=== PATIENT | female | born 1945 | race Caucasian/White ===

== ENCOUNTER 2019-06-14 17:49 | Emergency (ER) | payer MEDICARE, OTHER, SELFPAY ==
[2019-06-14 18:07] VITALS: BP 173/86; PULSE 85; RESP 20; TEMP 36.5; O2SAT 99; BMI 24.0
--- NOTE | 2019-06-14 18:32 | ECG_ITS ---
Measurements Intervals [place] Rate: 80 P: 61 [place]: 162 QRS: 26 QRSD: 94 T: 26 QT: 373 QTc: 431 SINUS RHYTHM POSSIBLE LEFT ATRIAL ENLARGEMENT [-0.1mV P WAVE IN V1/V2] NONSPECIFIC ST & T-WAVE ABNORMALITY INTERPRETATION BASED ON A DEFAULT AGE OF 40 YEARS No previous ECG available for comparison Electronically Signed On 06-15-2019 14:11:38 LITIGATION SERVICES MANAGER by Prem Patel M.D. [id number]
--- NOTE | 2019-06-14 18:40 | ED_ITS ---
Entered by Isabel Pearce, acting as scribe for Adwoa Jurado Sb Jun 14, 2019 17:49 HPI - Chest Pain General: Chief Complaint: Chest Pain Stated Complaint: chest pressure Time Seen by Provider: 06/14/19 18:39 Source: patient and family Mode of arrival: ambulatory Limitations: no limitations History of Present Illness: HPI narrative: 73 yo female presents with chest tightness. pt states the pain comes and go. pt states in ED the pain is gone. pt states exertion or any other symptoms makes this worse and nothing better. pt denies any other symptoms at this time. She denies any radiation of her pain although at times she will have associated left arm heaviness. She denies shortness of breath, nausea vomiting, diaphoresis, migration of her pain, ripping tearing sensation or otherwise. MD complaint: chest pain Onset (ago): day(s) (last night) Timing of current episode: constant and still present Prior episodes: No Onset: during exertion Pain location: substernal Pain radiation: left arm Severity: mild Quality: tightness Relieving factors: nothing Exacerbating factors: exertion Associated symptoms: Reports no associated symptoms; Deny abdominal pain, diaphoresis, dyspnea, fever(s), nausea, palpitations, syncope or vomiting Treatment prior to arrival: aspirin Review of Systems General: Reports: 10 or more systems reviewed and unremarkable except in HPI and below Const: Denies: fever, chills, body aches, fatigue, malaise or diaphoresis Eyes: Denies: change in vision or blurry vision ENMT: Denies: throat pain, painful swallowing, hoarseness, ear pain, ear discharge, Change in hearing or nasal discharge Card: Reports: chest pain; Denies: palpitations, irregular heart rhythm, syncope, pre-syncope, shortness of breath on exertion or shortness of breath when lying down Resp: Denies: shortness of breath, productive cough, non-productive cough, wheezing, coughing up blood or chest congestion GI: Denies: abdominal pain, nausea, vomiting, vomiting blood, coffee grounds in vomit, diarrhea, constipation, cramping, blood in stool or black tarry stool : Denies: flank pain, painful urination, urinary frequency, urinary urgency, decreased urine ouput, urinary incontinence or blood in urine Musc: Denies: neck pain, back pain, extremity pain, extremity swelling, joint pain, joint swelling, joint warmth or joint stiffness Skin/Breast: Denies: rash, skin tenderness or yellow skin Neuro: Denies: headache, numbness in extremities, weakness in extremities, changes in sensation, lack of coordination, difficulty walking, dizziness, vertigo or confusion Endo: Denies: excessive thirst, tired all the time, cold intolerance, excessive sweating, flushing or hot flashes Ricardo/Lymph: Denies: easy bruising, easy bleeding, petechiae or enlarged lymph nodes All/Imm: Denies: hives, throat swelling, tongue swelling, facial swelling or acute wheezing PFSH ED 2 PFSH: Medical History HTN (hypertension) Social History Smoking and tobacco status: never smoked Physical Exam Const: COMMON NORMALS: no apparent distress, oriented x3, no limitations, healthy appearing and well nourished EXAM LIMITATIONS: no altered mental status GENERAL APPEARANCE: cooperative, well kempt and well developed ORIENTATION/CONSCIOUSNESS: Yes awake HENMT: COMMON NORMALS: normocephalic, head/scalp atraumatic, hearing grossly normal bilaterally, external ears normal, EAC's normal, external nose normal and moist oral mucous membranes HEAD & SCALP: normal to inspection, normocephalic and atraumatic FACE & SINUS: normal facial exam and face symmetric NOSE: external nose normal and nares normal EXTERNAL EAR: Yes external ears normal EXTERNAL AUDITORY CANAL: EAC's normal MOUTH: oral and palatal mucosa normal and tongue normal Eye: COMMON NORMALS: PERRL, EOMs intact bilaterally, conjunctivae normal and no scleral icterus GENERAL EYE: normal appearance of both eyes and normal light reflex CONJUNCTIVA: Yes conjunctivae normal SCLERA: sclerae normal CORNEA: Yes corneas normal PUPIL: Yes PERRL DIRECT OPHTHALMOSCOPY: Yes normal light reflex Neck/C-Spine: COMMON NORMALS: full ROM, no lymphadenopathy, supple, no meningeal signs and no JVD GENERAL: Yes normal visual inspection and Yes trachea midline CERVICAL SPINE: Yes cervical ROM normal Chest: COMMONS NORMALS: inspection of chest normal and palpation of chest normal Resp: COMMON NORMALS: normal respiratory effort, no retractions, no use of accessory muscles and clear to auscultation bilaterally EFFORT & INSPECTION: Yes able to speak in complete sentences AUSCULTATION: clear to auscultation bilaterally Cardio: COMMON NORMALS: no JVD, regular rate, regular rhythm, S1 normal heart sound, S2 normal heart sound, no gallops, no clicks, no murmurs and no rub JUGULAR VENOUS DISTENTION: no JVD RATE: regular rate RHYTHM: regular rhythm HEART SOUNDS: S1 normal and S2 normal GI: COMMON NORMALS: soft to palpation, non-tender, no hepatosplenomegaly and no masses INSPECTION: Yes normal to inspection PALPATION: Yes soft and Yes no hepatosplenomegaly : COMMON NORMALS: Yes no CVA tenderness BLADDER/KIDNEY EXAM: Yes no CVA tenderness Back/Pelvis: COMMON NORMALS: no CVA tenderness, thoracic and lumbar spine normal to inspection, no thoracic nor lumbar tenderness and thoraco-lumbar ROM normal Extremity: COMMON NORMALS: normal to inspection, full ROM, normal capillary r efill, no joint enlargement, no clubbing, cyanosis or edema and no calf tenderness Neuro: COMMON NORMALS: oriented x3, CN's II-XII intact bilaterally, moves all extremities, no focal motor deficits and no sensory deficits noted MENINGEAL SIGNS: Yes no meningeal signs Psych: COMMON NORMALS: mental status grossly normal, thought process normal, cooperative, affect normal, speech normal and activity/motor behavior normal APPEARANCE: Yes well kempt SPEECH: Yes normal speech THOUGHT PROCESS: normal thought process Skin: COMMON NORMALS: no rashes or lesions noted, skin turgor normal, no jaundice, no petechiae and no mottling GENERAL SKIN EXAM: no rashes or lesions noted and turgor normal Course Vital Signs: Vital signs: Vital Signs Temperature 97.7 F 06/14/19 18:07 Pulse Rate 90 06/14/19 22:38 Respiratory Rate 18 06/14/19 22:38 Blood Pressure 146/84 06/14/19 22:38 Pulse Oximetry 98 06/14/19 22:38 MDM - Chest Pain MDM Narrative: Medical decision making narrative: Ms. Richardson is a nice 73-year-old female who comes in complaining of chest her heart score is a 5 but despite my discussing her risks and the need for her to stay in the hospital for a stress test she is refusing. The patient understands her risk but feels as though she has too many responsibilities at home. She declines to stay. She understands the risks of leaving including ultimately or severe permanent disability.despite this she wants to leave. She does understand she is welcome to return at any time. She plans at this time on following up with her nurse practitioner to set up an outpatient stress test for soon as possible. The patient has been warned but she is also been welcomed to return. Lab Data: Attestation: I reviewed the patient's lab results. Labs: Lab Results 06/14/19 06/14/19 06/14/19 Range/Units 19:01 19:01 19:01 WBC 11.3 H (4.0-10.0) 10^3/ uL RBC 4.91 (4.1-5.3) 10^6/u L Hgb 13.7 (11.5-15.3) g/dL Hct 41.9 (37.0-47.0) % MCV 85.3 (81-99) fL MCH 27.9 L (28.0-34.0) pg MCHC 32.7 (30.0-36.0) g/dL RDW 13.3 (12.1-15.1) % Plt Count 424 H (130-400) 10^3/c mm MPV 9.8 (7.4-10.4) fL Neut % (Auto) 78.8 % Lymph % (Auto) 14.9 % [place] % (Auto) 5.7 % Eos % (Auto) 0.0 % Baso % (Auto) 0.4 % Neut # (Auto) 8.9 H (1.8-7.7) 10^3/u L Lymph # (Auto) 1.7 (0.8-4.8) 10^3/u L [place] # (Auto) 0.6 (0.2-0.9) 10^3/u L Eos # (Auto) 0.0 (0.0-0.8) 10^3/u L Baso # (Auto) 0.1 (0.0-0.1) 10^3/u L Nucleated RBC % (a uto) 0 % Nucleated RBCs # 0.0 /100WBC Sodium 132 L (136-145) mmol/L Potassium 4.0 (3.5-5.1) mmol/L Chloride 93 L (98-107) mmol/L Carbon Dioxide 24 (22-29) mmol/L Anion Gap 19.0 (5-19) BUN 13 (8-23) mg/dL Creatinine 0.7 (0.5-0.9) mg/dL Glucose 116 H (65-115) mg/dL Calcium 10.4 (8.5-10.5) mg/dL Total Bilirubin 0.3 (0.15-1.2) mg/dL AST 28 (0-32) U/L ALT 26 (0-33) U/L Alkaline Phosphata se 73 (35-105) IU/L Troponin T Baselin e 8 (0-10) ng/mL Troponin T 120 Min mariangel (0-10) ng/mL Delta Troponin T (0-10) ABS# Total Protein 8.1 (6.6-8.7) g/dL Albumin 5.3 H (3.5-5.2) g/dL Globulin 2.8 (1.3-4.6) g/dL Lipase 28 (13-60) U/L Urine Color (Yellow) Urine Appearance (CLEAR) Urine pH (5-7) Ur Specific Gravit y (1.005-1.030) Urine Protein (Negative) Urine Glucose (UA) (Normal) Urine Ketones (Negative) Urine Blood (Negative) Urine Nitrate (Negative) Urine Bilirubin (NEGATIVE) Urine Urobilinogen (Negative) mg/dL Ur Leukocyte Myah ase (Negative) Urine RBC (0-2) /hpf Urine WBC (0-5) /hpf Ur Squamous Epith Cells (0-5) Ur Transition Epit h Cell /hpf Urine Bacteria (NONE) 06/14/19 06/14/19 Range/Units 21:01 22:16 WBC (4.0-10.0) 10^3/ uL RBC (4.1-5.3) 10^6/u L Hgb (11.5-15.3) g/dL Hct (37.0-47.0) % MCV (81-99) fL MCH (28.0-34.0) pg MCHC (30.0-36.0) g/dL RDW (12.1-15.1) % Plt Count (130-400) 10^3/c mm MPV (7.4-10.4) fL Neut % (Auto) % Lymph % (Auto) % [place] % (Auto) % Eos % (Auto) % Baso % (Auto) % Neut # (Auto) (1.8-7.7) 10^3/u L Lymph # (Auto) (0.8-4.8) 10^3/u L [place] # (Auto) (0.2-0.9) 10^3/u L Eos # (Auto) (0.0-0.8) 10^3/u L Baso # (Auto) (0.0-0.1) 10^3/u L Nucleated RBC % (a uto) % Nucleated RBCs # /100WBC Sodium (136-145) mmol/L Potassium (3.5-5.1) mmol/L Chloride (98-107) mmol/L Carbon Dioxide (22-29) mmol/L Anion Gap (5-19) BUN (8-23) mg/dL Creatinine (0.5-0.9) mg/dL Glucose (65-115) mg/dL Calcium (8.5-10.5) mg/dL Total Bilirubin (0.15-1.2) mg/dL AST (0-32) U/L ALT (0-33) U/L Alkaline Phosphata se (35-105) IU/L Troponin T Baselin e (0-10) ng/mL Troponin T 120 Min mariangel 7.89 (0-10) ng/mL Delta Troponin T -0.11 L (0-10) ABS# Total Protein (6.6-8.7) g/dL Albumin (3.5-5.2) g/dL Globulin (1.3-4.6) g/dL Lipase (13-60) U/L Urine Color Straw (Yellow) Urine Appearance Clear (CLEAR) Urine pH 7 (5-7) Ur Specific Gravit y 1.010 (1.005-1.030) Urine Protein Neg (Negative) Urine Glucose (UA) Norm (Normal) Urine Ketones Negative (Negative) Urine Blood 2+ H (Negative) Urine Nitrate Negative (Negative) Urine Bilirubin Neg (NEGATIVE) Urine Urobilinogen Norm (Negative) mg/dL Ur Leukocyte Myah ase Trace H (Negative) Urine RBC 0-4 H (0-2) /hpf Urine WBC 5-10 H (0-5) /hpf Ur Squamous Epith Cells 5-10 H (0-5) Ur Transition Epit h Cell 5-10 /hpf Urine Bacteria 1+ H (NONE) Imaging Data^: CXR: Attestation: I personally reviewed and interpreted this imaging study as follows : My impression: No acute cardiopulmonary disease. Mild scoliosis. Unchanged from previous. EKG Data^: EKG 1: Attestation: I personally reviewed and interpreted this EKG as follows: EKG interpretation date: 06/14/19 EKG interpretation time: 18:16 Interpretation: Normal sinus rhythm at 80 beats a minute, normal intervals, no blocks, nonspecific ST and T wave changes. No old for comparison. EKG 2: EKG interpretation date: 06/14/19 EKG interpretation time: 19:57 Interpretation: Normal sinus rhythm at 71 beats a minute, normal intervals, no blocks, nonspecific ST and T wave changes. Unchanged from previous EKG done today. Discharge Plan Discharge Patient Disposition: Left Against Medical Advice Clinical Impression: Chest pain Qualifiers: Chest pain type: unspecified Qualified Code(s): R07.9 - Chest pain, unspecified Condition: Stable Prescriptions: New aspirin 325 mg tablet,delayed release (DR/EC) 325 mg PO DAILY Qty: 30 RF: 0 No Action metoprolol succinate 25 mg tablet extended release 24 hr PO RF: 0 hydrochlorothiazide 25 mg tablet RF: 0 amlodipine 10 mg tablet RF: 0 Vitamin D2 1,250 mcg (50,000 unit) capsule RF: 0 levothyroxine 50 mcg tablet RF: 0 Discharge Orders: Discharge Order (Routine); Ordered 06/14/19 Ordered By: Adwoa Jurado Referrals: Prem Patel MD [Physician] - 1-3 days Reinaldo Carmen FNP-C [Primary Care Provider] - 1-3 days Discharge Diet: Advance as tolerated Discharge Activity: Increase activity as tolerated Patient Instructions: Chest Pain (ED) Activity Restrictions/Additional Instructions: You're leaving AGAINST MEDICAL ADVICE and are at risk for or severe permanent disability by doing so. You are more than welcome to return at any time for recheck and for further evaluation and care suture change you change your mind. A heart attack can be a life-threatening issue and I have offered admission for further evaluation and care so if you change your mind or your symptoms change or worsen in any way please return to the ER immediately for recheck. Discharge Date/Time: 06/14/19 22:38 Coding Level of Care Code ED Health Safety Specialist for Chg Fwd Exam Comprehensive The documentation recorded by the Ramses aguilera Bridget Annette, accurately reflects the service I personally performed and the decisions made by Adrien ragsdale Eli N Jun 14, 2019 17:49
[2019-06-14 19:00] VITALS: RESP 18
--- NOTE | 2019-06-14 19:21 | XR_ITS ---
WS: [id number] XR chest 1V portable [id number] REASON FOR EXAM: cough FINDINGS: Scoliotic curve is again noted convex to the right side involving the thoracic spine. The p eripheral lungs are mildly hyper aerated suggesting low-grade chronic obstructive pulmonary disease. The heart and mediastinum were normal. The hilum is and apices are normal. XR/XR chest 1V portable [id number] IMPRESSION: Scoliotic curve convex to the right persists. Mildly hyper aerated lung suggesting low-grade centrilobular emphysema.
[2019-06-14 19:31] LABS: Troponin(5th) Baseline 8 ng/mL (0-10)
[2019-06-14 20:00] LABS: Basophils # 0.1 10^3/uL (0.0-0.1); Basophils % 0.4 %; Hematocrit 41.9 % (37.0-47.0); Hemoglobin 13.7 g/dL (11.5-15.3); Lymphocytes # 1.7 10^3/uL (0.8-4.8); Lymphocytes % 14.9 %; Mean Corpuscular HGB Conc 32.7 g/dL (30.0-36.0); Mean Corpuscular Hemoglobin 27.9 pg (28.0-34.0); Mean Corpuscular Volume 85.3 fL (81-99); Mean Platelet Volume 9.8 fL (7.4-10.4); Monocytes # 0.6 10^3/uL (0.2-0.9); Monocytes % 5.7 %; Neutrophils # 8.9 10^3/uL (1.8-7.7); Neutrophils % 78.8 %; Nucleated Red Blood Cells % 0 %; Platelet Count 424 10^3/cmm (130-400); Red Blood Count 4.91 10^6/uL (4.1-5.3); Red Cell Distribution Width 13.3 % (12.1-15.1); White Blood Count 11.3 10^3/uL (4.0-10.0)
[2019-06-14 20:08] LABS: Alanine Aminotransferase 26 U/L (0-33); Albumin Level 5.3 g/dL (3.5-5.2); Alkaline Phosphatase 73 IU/L (35-105); Aspartate Amino Transferase 28 U/L (0-32); Blood Urea Nitrogen 13 mg/dL (8-23); Calcium 10.4 mg/dL (8.5-10.5); Carbon Dioxide 24 mmol/L (22-29); Chloride 93 mmol/L (98-107); Globulin 2.8 g/dL (1.3-4.6); Glucose 116 mg/dL (65-115); Lipase 28 U/L (13-60); Sodium 132 mmol/L (136-145); Total Bilirubin 0.3 mg/dL (0.15-1.2); Total Protein 8.1 g/dL (6.6-8.7)
--- NOTE | 2019-06-14 20:32 | ECG_ITS ---
Measurements Intervals [place] Rate: 71 P: 66 HI: 170 QRS: 52 QRSD: 93 T: 20 QT: 399 QTc: [address] & T-WAVE ABNORMALITY No previous ECG available for comparison Electronically Signed On 06-15-2019 14:14:00 CEILING INSTALLER by Prem Patel M.D. [id number]
[2019-06-14 21:28] LABS: Troponin 5 2HR 7.89 ng/mL (0-10)
[2019-06-14 21:29] LABS: Troponin 5 2HR Delta -0.11 ABS# (0-10)
[2019-06-14 22:38] VITALS: BP 146/84; PULSE 90; RESP 18; O2SAT 98
[2019-06-14 23:27] LABS: Urine Appearance Clear (CLEAR); Urine Color Straw (Yellow); pH Urine 7 (5-7)
[2019-06-14 23:28] LABS: Bilirubin Urine Neg (NEGATIVE); Blood Urine 2+ (Negative); Glucose Urine UA Norm (Normal); Ketones Urine Negative (Negative); Leukocyte Esterase Urine Trace (Negative); Nitrate Urine Negative (Negative); Protein Urine Neg (Negative); Urobilinogen Urine Norm (Negative)
[2019-06-14 23:49] LABS: Bacteria Urine 1+; RBC Urine 0-4 /hpf (0-2)
[2019-06-14 23:50] LABS: Add Urine Culture? No
--- NOTE | 2019-06-15 13:51 | DCPLANNER ---
Addendum entered by Rosita Grant 06/15/19 13:52: Appointment is scheduled for Saturday, June 22, 2019 at 9:[address] Givens. Original Note: social media sr strategy manager had message to schedule a follow up appointment for patient with [facility]. social media sr strategy manager called [facility], spoke with Candi, a follow up appointment was scheduled for 2019 at 9:[address] Givens. Clinic will call patient with appointment information.
== END 2019-06-14 22:38 | disposition left against medical advice (07) ==
PROVIDERS: Emergency Provider Emergency Medicine; PCP Nurse Practitioner
DX: R07.9 Chest pain, unspecified (principal); I10 Essential (primary) hypertension; Z53.29 Procedure and treatment not carried out because of patient's decision for other reasons
CPT/HCPCS: 71045; 80053; 81001; 83690; 84484; 85025; 93005; 99282; 99284

== ENCOUNTER → 2019-07-06 08:32 | Outpatient (BNVA) | payer MEDICARE, OTHER, SELFPAY | PROVIDERS: PCP Nurse Practitioner; Visit Provider Nurse Practitioner Family | DX: E55.9 Vitamin D deficiency, unspecified (principal); I10 Essential (primary) hypertension; E03.9 Hypothyroidism, unspecified | CPT/HCPCS: 80053; 80061; 82306; 84443; 85025 ==

== ENCOUNTER → 2019-08-30 11:33 | Outpatient (BNVA) | payer MEDICARE, OTHER, SELFPAY | PROVIDERS: PCP Nurse Practitioner Family; Visit Provider Nurse Practitioner Family | DX: R79.89 Other specified abnormal findings of blood chemistry (principal); E55.9 Vitamin D deficiency, unspecified; E03.9 Hypothyroidism, unspecified; R06.02 Shortness of breath | CPT/HCPCS: 80053; 82306; 84443; 85025 ==

== ENCOUNTER 2019-11-10 07:43 | Emergency (ER) | payer MEDICARE, OTHER, SELFPAY ==
[2019-11-10 07:51] VITALS: BP 158/82; PULSE 80; RESP 18; TEMP 36.6; O2SAT 100; BMI 22.4
[2019-11-10 08:03] VITALS: O2SAT 98
--- NOTE | 2019-11-10 08:03 | USR_ITS ---
PROCEDURE INFORMATION: Exam: US Abdomen, Limited; Right Upper Quadrant Exam date and time: 11/10/2019 8:38 AM Age: 74 years old Clinical indication: Abdominal pain; Epigastric; Additional info: Ruq and cp TECHNIQUE: Imaging protocol: US abdomen. Real time ultrasound with image documentation. Limited exam focused on the right upper quadrant. COMPARISON: US Abdomen* [id number] 03/07/2015 8:40 AM FINDINGS: Liver: No focal hepatic mass. Gallbladder: Septated gallbladder. No shadowing calculi, wall edema, or pericholecystic fluid. Technologist reported negative sonographic Cerna sign. Common bile duct: Normal caliber of the visualized common bile duct measuring 5 mm in diameter. Pancreas: Obscuration of the pancreas by bowel gas. Right kidney: No acute sonographic abnormality in the visualized right kidney. Inferior vena cava: Unremarkable IVC. US/US abdomen limited [id number] IMPRESSION: No significant sonographic abnormality in the visualized right upper quadrant.
--- NOTE | 2019-11-10 08:03 | XRR_ITS ---
PROCEDURE INFORMATION: Exam: XR Chest, 1 View Exam date and time: 11/10/2019 8:20 AM Age: 74 years old Clinical indication: Chest pain; On breathing; Prior surgery; Surgery date: 6+ months; Surgery type: L mastectomy; Patient HX: C/O cp w inspiration; Additional info: Cp with inspiration TECHNIQUE: Imaging protocol: XR of the chest Views: 1 view. COMPARISON: CR XR chest 1V portable [id number] 06/14/2019 7:30 PM FINDINGS: Lungs: Emphysematous change and interstitial prominence. Pleural space: No significant pleural effusion. Heart/Mediastinum: No cardiomegaly. Vasculature: Calcification of the thoracic aorta and bronchi. Bones/joints: Osteopenia, degenerative change, and scoliosis. Old left rib fracture. Soft tissues: Postoperative change in the left breast and axilla. Other findings: Poorly defined nodular densities overlying the upper lung campos, which can be better evaluated with CT. XR/XR chest 1V portable [id number] IMPRESSION: Poorly defined nodular densities overlying the upper lung campos, which can be better evaluated with CT.
--- NOTE | 2019-11-10 08:03 | ECG_ITS ---
[facility] Test Date: 2019-11-10 Pat Name: Chantal Richardson Department: Room: Gender: Female Addictions Counselor Assistant: : 1945 Requested By: Zoya Leiva Order Number: [id number] Cindi MD: Paty Espinosa M.D. Measurements Intervals [place] Rate: 75 P: 104 [place]: 162 QRS: 169 QRSD: 90 T: 159 QT: 377 QTc: 422 Interpretive Statements SINUS RHYTHM POSSIBLE RIGHT VENTRICULAR HYPERTROPHY [SOME/ALL OF: PROMINENT R IN V1, LATE TRANSITION, RAD, STACY, SSS] ST DEVIATION AND MODERATE T-WAVE ABNORMALITY, CONSIDER LATERAL ISCHEMIA [-0.1+ mV T WAVE IN I/aVL/V5/V6] ST DEVIATION AND MODERATE T-WAVE ABNORMALITY, CONSIDER INFERIOR ISCHEMIA [-0.1+ mV T WAVE IN II/aVF] INTERPRETATION BASED ON A DEFAULT AGE OF 40 YEARS Compared to ECG 06/14/2019 19:57:42 Atrial abnormality now present Possible ischemia now present T-wave abnormality still present Electronically Signed On 11-10-2019 22:47:56 CDT by Paty Espinosa M.D. [id number]
--- NOTE | 2019-11-10 08:06 | ED_ITS ---
Documented by User: Zoya AbbieLEENA Rouse 11/10/19 11:30 HPI - Chest Pain General: Chief Complaint: Chest Pain Stated Complaint: CHEST PAIN Time Seen by Provider: 11/10/19 08:03 History of Present Illness: HPI narrative: Pleasant 74-year-old female patient presents to the emergency department with central chest pain. She reports chest pain started in the middle of her chest, worse with inspiration, pain started at 2 AM, reports took 325 mg aspirin, improved symptoms. She reports similar episode that occurred May 2019, reports was set up for stress test and echocardiogram but canceled outpatient procedures due to COVID- 19 outbreak. She reports afraid pain could be from her gallbladder. She denies nausea vomiting diarrhea, denies fever chills. She denies contact with COVID-19 positive individuals. Positive history of breast CA 23 years ago, did not receive radiation or chemotherapy, left breast mastectomy. Reports lifting pina of hay with questionable heat exhaustion earlier this week. MD complaint: chest pain and chest discomfort Pertinent past history: other (HTN) Onset (ago): hour(s) (at am - now better - PS10/10 at onset but 4/5 at time of visit) Timing of current episode: episodic Onset: during rest (while lying flat) Pain location: substernal Pain radiation: none Severity: moderate Quality: other (unalbe to describe pain - sharp with inspiration upon assessment) Relieving factors: other (ASA) Exacerbating factors: inspiration Associated symptoms: Reports abdominal pain (epigastric); Deny diaphoresis, dyspnea or fever(s) Review of Systems General: Reports: 10 or more systems reviewed and unremarkable except in HPI and below Const: Denies: fever(s), chills or diaphoresis Eyes: Denies: blurry vision or eye redness ENMT: Denies: throat pain, dental pain or disequilibrium Card: Reports: chest pain and edema (when ambulating - slight, resolves with leg elevation, Rx amlodipine); Denies: dyspnea on exertion, orthopnea or leg pain with exertion Resp: Reports: other (CP reproduced with inspiration); Denies: dyspnea, productive cough, non-productive cough or wheezing GI: Reports: abdominal pain (epigastric) : Denies: difficulty voiding or dysuria Musc: Denies: back pain Skin/Breast: Denies: rash or pruritus Neuro: Denies: headache(s), weakness in extremities or behavioral changes Psych: Reports: anxiety (r/t CP) Ricardo/Lymph: Denies: easy bruising PFSH ED PFSH: Medical History (Updated 11/10/19 @ 11:22 by LEENA Barrett) HTN (hypertension) Hypothyroid Vitamin D deficiency Family History (Updated 11/10/19 @ 09:13 by LEENA Barrett) Family/Other Cancer Breast Hypertension CAD (coronary artery disease), Onset Age: 57 brother - living Other Heart disease Social History Smoking and tobacco status: never smoked Second hand smoke exposure: No Alcohol intake: never Lives independently: Yes Household members: none Housing: House Marital status: / Current occupational status: retired History of recent travel: No Current gender identity: Female Physical Exam Const: COMMON NORMALS: no acute distress, patient oriented x3, healthy appearing, alert (smiling, laughing upon exam) and well nourished GENERAL APPEARANCE: cooperative, comfortable and well hydrated Eye: COMMON NORMALS: Equal, round and reactive pupils present and EOMs intact bilaterally GENERAL EYE: appearance normal, both eyes and all related structures PUPIL: Yes Equal, round and reactive pupils present Neck/C-Spine: COMMON NORMALS: full ROM and no lymphadenopathy GENERAL: Yes normal visual inspection and Yes trachea midline CERVICAL SPINE: Yes cervical ROM normal Lymph: LYMPHATIC: no lymphadenopathy noted Chest: COMMONS NORMALS: normal inspection of the chest Resp: COMMON NORMALS: normal respiratory effort and clear to auscultation bilaterally EFFORT & INSPECTION: Yes other AUSCULTATION: clear to auscultation bilaterally OTHER: Pain not reproduced with palpation to central chest Cardio: COMMON NORMALS: regular rhythm, S1 normal heart sound present, S2 normal heart sound present and Peripheral pulses 2+ throughout JUGULAR VENOUS DISTENTION: no JVD RHYTHM: regular rhythm HEART SOUNDS: S1 normal heart sound present and S2 normal heart sound present PERIPHERAL PULSES: Peripheral pulses 2+ throughout and other (Negative edema peripheral extremities) GI: COMMON NORMALS: Soft to palpation INSPECTION: Yes normal to inspection PALPATION: Yes Soft to palpation and Yes Tenderness to palpation present (GI) (pain reproduced to the central chest - + murphys) Details: RUQ : COMMON NORMALS: Yes no CVA tenderness BLADDER/KIDNEY EXAM: Yes no CVA tenderness Back/Pelvis: COMMON NORMALS: no CVA tenderness and thoracic and lumbar spine normal to inspection Extremity: COMMON NORMALS: normal to inspection and capillary refill normal Neuro: COMMON NORMALS: patient oriented x3 and no focal motor deficits SENSORIUM/ORIENTATION: Yes alert (smiling, laughing upon exam) Psych: COMMON NORMALS: mental status grossly normal, Normal thought process present and cooperative ACTIVITY/MOTOR BEHAVIOR: Yes appropriate eye contact THOUGHT PROCESS: Normal thought process present Skin: COMMON NORMALS: no rashes or lesions noted and turgor normal GENERAL SKIN EXAM: no rashes or lesions noted and turgor normal Course ED course: CT of the chest ordered due to nodular densities in the upper lobes which are not appreciated on previous exam, May 2019. She is experiencing pain with inspiration, history of breast cancer 1996 with mastectomy of the left breast. She has declined pain medication here in the emergency department. She reports her pain is currently 2 out of a 10 and occurs only with inspiration. 74-year-old female patient presents to the emergency department with complaints of chest pain. Upon arrival to the emergency department, her pain had improved. Heart score of 5, troponin has remained within normal limits, she was offered hospitalization for cardiac monitoring/cardiac consult and she declines, she is aware that leaving against recommendation for continued monitoring from cardiac standpoint can lead to or other irreversible disabilities. Case reviewed with Dr. Salguero -[facility] EKG remains unchanged. She agrees to follow-up with stress test monitoring on Tuesday or Tuesday. Vital Signs: Vital signs: Vital Signs Temperature 97.8 F 11/10/19 07:51 Pulse Rate 71 11/10/19 11:39 Respiratory Rate 21 H 11/10/19 11:39 Blood Pressure 134/70 11/10/19 11:39 Pulse Oximetry 98 11/10/19 11:39 MDM - Chest Pain MDM Narrative: Medical decision making narrative: TSH 2.36, 08/2019, Heart score 5, CT chest CT Scan Report Signed Patient: Chantal Richardson #: [id number] : 5Acct#:[id number] Age/Sex: 74 / FADM Date: 11/10/19 Loc: ERRoom/Bed: Attending Dr: Ordering Provider/Ordering MD: Zoya Cyr Date of Service: 11/10/19 Procedure(s): CT chest w con* [id number] Accession Number(s): [id number] Report Number: [id number] PROCEDURE INFORMATION: Exam: CT Chest With Contrast Exam date and time: 11/10/2019 9:36 AM Age: 74 years old Clinical indication: Chest pain; On breathing; Prior surgery; Surgery date: 6+ months; Surgery type: L mastectomy; Patient HX: C/O inspiratory cp; Additional info: Cp with inspiration, nodular densities - h/o breast CA TECHNIQUE: Imaging protocol: Computed tomography of the chest with intravenous contrast. Radiation optimization: All CT scans at this facility use at least one of these dose optimization techniques: automated exposure control; mA and/or kV adjustment per patient size (includes targeted exams where dose is matched to clinical indication); or iterative reconstruction. Contrast material: OMNI 300; Contrast volume: 95 ml; Contrast route: INTRAVENOUS (IV); COMPARISON: CR XR chest 1V portable [id number] 11/10/2019 8:10 AM FINDINGS: Thyroid: Right thyroid calcification. Lungs: COPD, interstitial prominence, and mild dependent airspace disease. 5 mm right middle lobe granuloma, in association with chronic granulomatous disease. Pleural space: No significant pleural effusion. Heart: Coronary artery calcification. Mediastinal space: Small hiatal hernia. Aorta: Calcification and atherosclerotic plaque in the normal caliber abdominal aorta. Lymph nodes: Calcified lymph nodes in association with chronic granulomatous disease. Upper abdomen: Wall thickening in the nondistended stomach. Colonic dilatation. Splenic granulomata. Bones/joints: Dextroscoliosis and degenerative change. Soft tissues: Left mastectomy. Surgical clips in the left axilla. CT/CT chest w con* [id number] IMPRESSION: 1. COPD, interstitial prominence, and mild dependent airspace disease. 2. 5 mm right middle lobe granuloma, in association with chronic granulomatous disease. 3. Additional findings as described above. Radiation Dose CTDIVOL = (mGy): DLP = 400.55 (mGy-cm) Dictated By:Damon Truong MD Differential Diagnosis: Cardiac arrest differential diagnosis: Likely acute massive pulmonary embolism (Well's criteria 0) Lab Data: Labs: Lab Results 11/10/19 11/10/19 11/10/19 Range/Units 07:56 08:10 08:10 WBC 10.6 H (4.0-10.0) 10^3/ uL RBC 4.87 (4.1-5.3) 10^6/u L Hgb 13.9 (11.5-15.3) g/dL Hct 42.8 (37.0-47.0) % MCV 87.9 (81-99) fL MCH 28.5 (28.0-34.0) pg MCHC 32.5 (30.0-36.0) g/dL RDW 13.5 (12.1-15.1) % Plt Count 357 (130-400) 10^3/c mm MPV 9.6 (7.4-10.4) fL Neut % (Auto) 85.4 % Lymph % (Auto) 7.7 % [place] % (Auto) 6.3 % Eos % (Auto) 0.0 % Baso % (Auto) 0.3 % Neut # (Auto) 9.08 H (1.8-7.7) 10^3/u L Lymph # (Auto) 0.8 (0.8-4.8) 10^3/u L [place] # (Auto) 0.7 (0.2-0.9) 10^3/u L Eos # (Auto) 0.0 (0.0-0.8) 10^3/u L Baso # (Auto) 0.0 (0.0-0.1) 10^3/u L Nucleated RBC % (a uto) 0 % Nucleated RBCs # 0.0 /100WBC Sodium 136 (136-145) mmol/L Potassium 4.1 (3.5-5.1) mmol/L Chloride 98 (98-107) mmol/L Carbon Dioxide 27 (22-29) mmol/L Anion Gap 15.1 (5-19) BUN 9 (8-23) mg/dL Creatinine 0.7 (0.5-0.9) mg/dL Glucose 135 H (65-115) mg/dL Calculated Osmolal ity 280 L (285-295) mOsm/k g Calcium 9.8 (8.5-10.5) mg/dL Total Bilirubin 0.4 (0.15-1.2) mg/dL AST 22 (0-32) U/L ALT 18 (0-33) U/L Alkaline Phosphata se 60 (35-105) IU/L Troponin T Baselin e (0-10) ng/L Troponin T 120 Min [place] (0-10) ng/L Delta Troponin T (0-10) ABS# NT-Pro-B Natriuret Pep 165 (0-450) pg/mL Total Protein 7.2 (6.6-8.7) g/dL Albumin 5.1 (3.5-5.2) g/dL Globulin 2.1 (1.3-4.6) g/dL Lipase 32 (13-60) U/L Urine Color Straw (Yellow) Urine Appearance Clear (CLEAR) Urine pH 8 H (5-7) Ur Specific Gravit y 1.010 (1.005-1.030) Urine Protein Neg (Negative) Urine Glucose (UA) Norm (Normal) Urine Ketones Negative (Negative) Urine Blood Trace H (Negative) Urine Nitrate Negative (Negative) Urine Bilirubin Neg (NEGATIVE) Prot Sulfosalicyli c Acd Negative (Negative) Urine Urobilinogen Norm (Negative) mg/dL Ur Leukocyte Myah ase Negative (Negative) Urine RBC Rare (0-2) /hpf Urine WBC None (0-5) /hpf Ur Squamous Epith Cells None (0-5) Ur Transition Epit h Cell Rare /hpf Amorphous Sediment Not Reportable Urine Bacteria Trace (NONE) 11/10/19 11/10/19 Range/Units 08:10 10:05 WBC (4.0-10.0) 10^3/ uL RBC (4.1-5.3) 10^6/u L Hgb (11.5-15.3) g/dL Hct (37.0-47.0) % MCV (81-99) fL MCH (28.0-34.0) pg MCHC (30.0-36.0) g/dL RDW (12.1-15.1) % Plt Count (130-400) 10^3/c mm MPV (7.4-10.4) fL Neut % (Auto) % Lymph % (Auto) % [place] % (Auto) % Eos % (Auto) % Baso % (Auto) % Neut # (Auto) (1.8-7.7) 10^3/u L Lymph # (Auto) (0.8-4.8) 10^3/u L [place] # (Auto) (0.2-0.9) 10^3/u L Eos # (Auto) (0.0-0.8) 10^3/u L Baso # (Auto) (0.0-0.1) 10^3/u L Nucleated RBC % (a uto) % Nucleated RBCs # /100WBC Sodium (136-145) mmol/L Potassium (3.5-5.1) mmol/L Chloride (98-107) mmol/L Carbon Dioxide (22-29) mmol/L Anion Gap (5-19) BUN (8-23) mg/dL Creatinine (0.5-0.9) mg/dL Glucose (65-115) mg/dL Calculated Osmolal ity (285-295) mOsm/k g Calcium (8.5-10.5) mg/dL Total Bilirubin (0.15-1.2) mg/dL AST (0-32) U/L ALT (0-33) U/L Alkaline Phosphata se (35-105) IU/L Troponin T Baselin e 6 (0-10) ng/L Troponin T 120 Min [place] 7.43 (0-10) ng/L Delta Troponin T 1.43 (0-10) ABS# NT-Pro-B Natriuret Pep (0-450) pg/mL Total Protein (6.6-8.7) g/dL Albumin (3.5-5.2) g/dL Globulin (1.3-4.6) g/dL Lipase (13-60) U/L Urine Color (Yellow) Urine Appearance (CLEAR) Urine pH (5-7) Ur Specific Gravit y (1.005-1.030) Urine Protein (Negative) Urine Glucose (UA) (Normal) Urine Ketones (Negative) Urine Blood (Negative) Urine Nitrate (Negative) Urine Bilirubin (NEGATIVE) Prot Sulfosalicyli c Acd (Negative) Urine Urobilinogen (Negative) mg/dL Ur Leukocyte Myah ase (Negative) Urine RBC (0-2) /hpf Urine WBC (0-5) /hpf Ur Squamous Epith Cells (0-5) Ur Transition Epit h Cell /hpf Amorphous Sediment Urine Bacteria (NONE) EKG Data^: EKG 1: EKG interpretation date: 11/10/19 EKG interpretation time: 08:05 Interpretation: Possible sinus rhythm, possible right ventricular hypertrophy, ST depression and moderate T wave abnormality -EKG comparison to 06/14/2019; lateral changes/ischemia noted Computer generated interpretation: Sinus rhythm, consider lateral wall ischemia; ST deviation and moderate T wave abnormality; consider inferior ischemia, abnormal EKG possible right ventricular hypertrophy, ST deviation and moderate T wave abnormality EKG 2: EKG interpretation date: 11/10/19 EKG interpretation time: 11:07 Prior EKG tracings: available for review Ischemic changes: non-specific ST-T wave changes Computer generated interpretation: Sinus rhythm, nonspecific T wave abnormality, borderline EKG Discharge Plan Discharge Patient Disposition: Home, Self-Care Clinical Impression: Unstable angina pectoris Chest pain Qualifiers: Chest pain type: chest pain on breathing Qualified Code(s): R07.1 - Chest pain on breathing Condition: Stable Prescriptions: New isosorbide mononitrate 30 mg tablet extended release 24 hr 30 mg PO DAILY Qty: 14 RF: 0 nitroglycerin 0.4 mg tablet, sublingual 0.4 mg SUBLINGUAL Q5M MDD 3 PRN (Reason: chest pain) Qty: 30 RF: 0 No Action hydrochlorothiazide 25 mg tablet 25 mg PO DAILY Qty: 90 RF: 1 levothyroxine 50 mcg tablet 50 mcg PO DAILY Qty: 90 RF: 1 metoprolol succinate 25 mg tablet extended release 24 hr 12.5 mg PO DAILY Qty: 90 RF: 1 amlodipine 10 mg tablet 10 mg PO DAILY Qty: 90 RF: 1 aspirin 325 mg tablet,delayed release (DR/EC) 325 mg PO ONCE RF: 0 Vitamin D2 1,250 mcg (50,000 unit) capsule 50,000 unit PO Q30D RF: 0 Discharge Orders: Discharge Order (Routine); Ordered 11/10/19 Ordered By: Zoya Cyr Referrals: Minda Rodriguez FNP [Primary Care Provider] - Discharge Diet: Usual diet Discharge Activity: Limit activity as instructed Patient Instructions: Angina (ED) Activity Restrictions/Additional Instructions: Return to the emergency department for any episodes of chest pain, especially if you develop nausea, worsening chest pain or pain that radiates to your neck or to the arms. Follow-up with your doctor this week without fail, continue aspirin therapy daily, stress test has been ordered for you; test will be scheduled for Tuesday or Tuesday of this week. director client services will contact you for exact time and date. New medication prescriptions for Imdur has been provided. Imdur can cause headache, Tylenol is effective resolving headache and may be needed with use of medication. You are to stay inside, remain cool, do not attempt outside work that will cause exhaustion/heat exhaustion. You will need to rest at home. Discharge Date/Time: 11/10/19 11:40 Coding Level of Care Code ED Assistant Reading Teacher for Chg Fwd Exam Comprehensive Documented by User: Chetan Salguero DO 11/10/19 11:47 HPI - Chest Pain General: Chief Complaint: Chest Pain Stated Complaint: CHEST PAIN Time Seen by Provider: 11/10/19 08:03 PFS ED PFSH: Medical History (Updated 11/10/19 @ 11:22 by LEENA Barrett) HTN (hypertension) Hypothyroid Vitamin D deficiency Family History (Updated 11/10/19 @ 09:13 by LEENA Barrett) Family/Other Cancer Breast Hypertension CAD (coronary artery disease), Onset Age: 57 brother - living Other Heart disease Social History Smoking and tobacco status: never smoked Second hand smoke exposure: No Alcohol intake: never Lives independently: Yes Household members: none Housing: House Marital status: / Current occupational status: retired History of recent travel: No Current gender identity: Female Course Vital Signs: Vital signs: Vital Signs Temperature 97.8 F 11/10/19 07:51 Pulse Rate 71 11/10/19 11:39 Respiratory Rate 21 H 11/10/19 11:39 Blood Pressure 134/70 11/10/19 11:39 Pulse Oximetry 98 11/10/19 11:39 MDM - Chest Pain MDM Narrative: Medical decision making narrative: Discussed case with Zoya Gonzalez APN. We offered the patient admission she declined interestingly she had been carrying hay pina and had no symptoms during that time. Unfortunately she is never had any stress testing she had previously been seen for chest pain and advised to be admitted but she declined at that time as well. We offered her admission but we knew we would not be able to stress test until Tuesday she declines admission. We will start her on Imdur and also give her sublingual nitro tablets advised her not to do anything strenuous we will set her up for outpatient stress testing and follow-up with cardiology she also knows to return to the emergency room if she has any further pain. She did understand that by declining offer for admission there was a chance that she would we would miss a heart attack or that she may have worsening symptoms that would cause permanent damage to her heart even she acknowledges this and prefers to go with the outpatient treatment. Lab Data: Labs: Lab Results 11/10/19 11/10/19 11/10/19 Range/Units 07:56 08:10 08:10 WBC 10.6 H (4.0-10.0) 10^3/ uL RBC 4.87 (4.1-5.3) 10^6/u L Hgb 13.9 (11.5-15.3) g/dL Hct 42.8 (37.0-47.0) % MCV 87.9 (81-99) fL MCH 28.5 (28.0-34.0) pg MCHC 32.5 (30.0-36.0) g/dL RDW 13.5 (12.1-15.1) % Plt Count 357 (130-400) 10^3/c mm MPV 9.6 (7.4-10.4) fL Neut % (Auto) 85.4 % Lymph % (Auto) 7.7 % [place] % (Auto) 6.3 % Eos % (Auto) 0.0 % Baso % (Auto) 0.3 % Neut # (Auto) 9.08 H (1.8-7.7) 10^3/u L Lymph # (Auto) 0.8 (0.8-4.8) 10^3/u L [place] # (Auto) 0.7 (0.2-0.9) 10^3/u L Eos # (Auto) 0.0 (0.0-0.8) 10^3/u L Baso # (Auto) 0.0 (0.0-0.1) 10^3/u L Nucleated RBC % (a uto) 0 % Nucleated RBCs # 0.0 /100WBC Sodium 136 (136-145) mmol/L Potassium 4.1 (3.5-5.1) mmol/L Chloride 98 (98-107) mmol/L Carbon Dioxide 27 (22-29) mmol/L Anion Gap 15.1 (5-19) BUN 9 (8-23) mg/dL Creatinine 0.7 (0.5-0.9) mg/dL Glucose 135 H (65-115) mg/dL Calculated Osmolal ity 280 L (285-295) mOsm/k g Calcium 9.8 (8.5-10.5) mg/dL Total Bilirubin 0.4 (0.15-1.2) mg/dL AST 22 (0-32) U/L ALT 18 (0-33) U/L Alkaline Phosphata se 60 (35-105) IU/L Troponin T Baselin e (0-10) ng/L Troponin T 120 Min [place] (0-10) ng/L Delta Troponin T (0-10) ABS# NT-Pro-B Natriuret Pep 165 (0-450) pg/mL Total Protein 7.2 (6.6-8.7) g/dL Albumin 5.1 (3.5-5.2) g/dL Globulin 2.1 (1.3-4.6) g/dL Lipase 32 (13-60) U/L Urine Color Straw (Yellow) Urine Appearance Clear (CLEAR) Urine pH 8 H (5-7) Ur Specific Gravit y 1.010 (1.005-1.030) Urine Protein Neg (Negative) Urine Glucose (UA) Norm (Normal) Urine Ketones Negative (Negative) Urine Blood Trace H (Negative) Urine Nitrate Negative (Negative) Urine Bilirubin Neg (NEGATIVE) Prot Sulfosalicyli c Acd Negative (Negative) Urine Urobilinogen Norm (Negative) mg/dL Ur Leukocyte Myah ase Negative (Negative) Urine RBC Rare (0-2) /hpf Urine WBC None (0-5) /hpf Ur Squamous Epith Cells None (0-5) Ur Transition Epit h Cell Rare /hpf Amorphous Sediment Not Reportable Urine Bacteria Trace (NONE) 07/18/20 07/18/20 Range/Units 08:10 10:05 WBC (4.0-10.0) 10^3/ uL RBC (4.1-5.3) 10^6/u L Hgb (11.5-15.3) g/dL Hct (37.0-47.0) % MCV (81-99) fL MCH (28.0-34.0) pg MCHC (30.0-36.0) g/dL RDW (12.1-15.1) % Plt Count (130-400) 10^3/c mm MPV (7.4-10.4) fL Neut % (Auto) % Lymph % (Auto) % [place] % (Auto) % Eos % (Auto) % Baso % (Auto) % Neut # (Auto) (1.8-7.7) 10^3/u L Lymph # (Auto) (0.8-4.8) 10^3/u L [place] # (Auto) (0.2-0.9) 10^3/u L Eos # (Auto) (0.0-0.8) 10^3/u L Baso # (Auto) (0.0-0.1) 10^3/u L Nucleated RBC % (a uto) % Nucleated RBCs # /100WBC Sodium (136-145) mmol/L Potassium (3.5-5.1) mmol/L Chloride (98-107) mmol/L Carbon Dioxide (22-29) mmol/L Anion Gap (5-19) BUN (8-23) mg/dL Creatinine (0.5-0.9) mg/dL Glucose (65-115) mg/dL Calculated Osmolal ity (285-295) mOsm/k g Calcium (8.5-10.5) mg/dL Total Bilirubin (0.15-1.2) mg/dL AST (0-32) U/L ALT (0-33) U/L Alkaline Phosphata se (35-105) IU/L Troponin T Baselin e 6 (0-10) ng/L Troponin T 120 Min [place] 7.43 (0-10) ng/L Delta Troponin T 1.43 (0-10) ABS# NT-Pro-B Natriuret Pep (0-450) pg/mL Total Protein (6.6-8.7) g/dL Albumin (3.5-5.2) g/dL Globulin (1.3-4.6) g/dL Lipase (13-60) U/L Urine Color (Yellow) Urine Appearance (CLEAR) Urine pH (5-7) Ur Specific Gravit y (1.005-1.030) Urine Protein (Negative) Urine Glucose (UA) (Normal) Urine Ketones (Negative) Urine Blood (Negative) Urine Nitrate (Negative) Urine Bilirubin (NEGATIVE) Prot Sulfosalicyli c Acd (Negative) Urine Urobilinogen (Negative) mg/dL Ur Leukocyte Myah ase (Negative) Urine RBC (0-2) /hpf Urine WBC (0-5) /hpf Ur Squamous Epith Cells (0-5) Ur Transition Epit h Cell /hpf Amorphous Sediment Urine Bacteria (NONE) Discharge Plan Discharge Patient Disposition: Home, Self-Care Clinical Impression: Unstable angina pectoris Chest pain Qualifiers: Chest pain type: chest pain on breathing Qualified Code(s): R07.1 - Chest pain on breathing Condition: Stable Prescriptions: New isosorbide mononitrate 30 mg tablet extended release 24 hr 30 mg PO DAILY Qty: 14 RF: 0 nitroglycerin 0.4 mg tablet, sublingual 0.4 mg SUBLINGUAL Q5M MDD 3 PRN (Reason: chest pain) Qty: 30 RF: 0 No Action hydrochlorothiazide 25 mg tablet 25 mg PO DAILY Qty: 90 RF: 1 levothyroxine 50 mcg tablet 50 mcg PO DAILY Qty: 90 RF: 1 metoprolol succinate 25 mg tablet extended release 24 hr 12.5 mg PO DAILY Qty: 90 RF: 1 amlodipine 10 mg tablet 10 mg PO DAILY Qty: 90 RF: 1 aspirin 325 mg tablet,delayed release (DR/EC) 325 mg PO ONCE RF: 0 Vitamin D2 1,250 mcg (50,000 unit) capsule 50,000 unit PO Q30D RF: 0 Discharge Orders: Discharge Order (Routine); Ordered 11/10/19 Ordered By: Zoya Cyr Referrals: Minda Rodriguez FNP [Primary Care Provider] - Discharge Diet: Usual diet Discharge Activity: Limit activity as instructed Patient Instructions: Angina (ED) Activity Restrictions/Additional Instructions: Return to the emergency department for any episodes of chest pain, especially if you develop nausea, worsening chest pain or pain that radiates to your neck or to the arms. Follow-up with your doctor this week without fail, continue aspirin therapy daily, stress test has been ordered for you; test will be scheduled for Tuesday or Tuesday of this week. director client services will contact you for exact time and date. New medication prescriptions for Imdur has been provided. Imdur can cause headache, Tylenol is effective resolving headache and may be needed with use of medication. You are to stay inside, remain cool, do not attempt outside work that will cause exhaustion/heat exhaustion. You will need to rest at home. Discharge Date/Time: 11/10/19 11:40 Coding Level of Care Code ED Assistant Reading Teacher for Chg Fwd Exam Comprehensive
--- NOTE | 2019-11-10 08:20 | PC.NURSE ---
portable ultrasound at bedside
[2019-11-10 08:27] LABS: Basophils % 0.3 %; Hematocrit 42.8 % (37.0-47.0); Hemoglobin 13.9 g/dL (11.5-15.3); Lymphocytes # 0.8 10^3/uL (0.8-4.8); Lymphocytes % 7.7 %; Mean Corpuscular HGB Conc 32.5 g/dL (30.0-36.0); Mean Corpuscular Hemoglobin 28.5 pg (28.0-34.0); Mean Corpuscular Volume 87.9 fL (81-99); Mean Platelet Volume 9.6 fL (7.4-10.4); Monocytes # 0.7 10^3/uL (0.2-0.9); Monocytes % 6.3 %; Neutrophils # 9.08 10^3/uL (1.8-7.7); Neutrophils % 85.4 %; Nucleated Red Blood Cells % 0 %; Platelet Count 357 10^3/cmm (130-400); Red Blood Count 4.87 10^6/uL (4.1-5.3); Red Cell Distribution Width 13.5 % (12.1-15.1); White Blood Count 10.6 10^3/uL (4.0-10.0)
[2019-11-10 08:49] LABS: Troponin(5th) Baseline 6 ng/L (0-10)
[2019-11-10 08:53] LABS: Urine Appearance Clear (CLEAR); Urine Color Straw (Yellow); pH Urine 8 (5-7)
[2019-11-10 08:54] LABS: Bilirubin Urine Neg (NEGATIVE); Blood Urine Trace (Negative); Glucose Urine UA Norm (Normal); Ketones Urine Negative (Negative); Leukocyte Esterase Urine Negative (Negative); Nitrate Urine Negative (Negative); Protein Urine Neg (Negative); Urobilinogen Urine Norm (Negative)
[2019-11-10 08:55] LABS: Add Urine Culture? No; Add Urine Microscopic? YES; Bacteria Urine TRACE; RBC Urine RARE /hpf (0-2); Sulfosalicylic Acid Urine Negative (Negative); Transitional Epi Cells Urine RARE /hpf
[2019-11-10 08:58] LABS: Alanine Aminotransferase 18 U/L (0-33); Albumin Level 5.1 g/dL (3.5-5.2); Alkaline Phosphatase 60 IU/L (35-105); Anion Gap 15.1 (5-19); Aspartate Amino Transferase 22 U/L (0-32); Blood Urea Nitrogen 9 mg/dL (8-23); Calcium 9.8 mg/dL (8.5-10.5); Carbon Dioxide 27 mmol/L (22-29); Chloride 98 mmol/L (98-107); Globulin 2.1 g/dL (1.3-4.6); Glucose 135 mg/dL (65-115); Lipase 32 U/L (13-60); NT Pro B Type Natriuretic Pept 165 pg/mL (0-450); Osmolality Calculated 280 mOsm/kg (285-295); Potassium 4.1 mmol/L (3.5-5.1); Sodium 136 mmol/L (136-145); Total Bilirubin 0.4 mg/dL (0.15-1.2); Total Protein 7.2 g/dL (6.6-8.7)
[2019-11-10 09:17] VITALS: BP 127/73; PULSE 67; RESP 16; O2SAT 99
--- NOTE | 2019-11-10 09:22 | CTR_ITS ---
PROCEDURE INFORMATION: Exam: CT Chest With Contrast Exam date and time: 11/10/2019 9:36 AM Age: 74 years old Clinical indication: Chest pain; On breathing; Prior surgery; Surgery date: 6+ months; Surgery type: L mastectomy; Patient HX: C/O inspiratory cp; Additional info: Cp with inspiration, nodular densities - h/o breast CA TECHNIQUE: Imaging protocol: Computed tomography of the chest with intravenous contrast. Radiation optimization: All CT scans at this facility use at least one of these dose optimization techniques: automated exposure control; mA and/or kV adjustment per patient size (includes targeted exams where dose is matched to clinical indication); or iterative reconstruction. Contrast material: OMNI 300; Contrast volume: 95 ml; Contrast route: INTRAVENOUS (IV); COMPARISON: CR XR chest 1V portable [id number] 11/10/2019 8:10 AM FINDINGS: Thyroid: Right thyroid calcification. Lungs: COPD, interstitial prominence, and mild dependent airspace disease. 5 mm right middle lobe granuloma, in association with chronic granulomatous disease. Pleural space: No significant pleural effusion. Heart: Coronary artery calcification. Mediastinal space: Small hiatal hernia. Aorta: Calcification and atherosclerotic plaque in the normal caliber abdominal aorta. Lymph nodes: Calcified lymph nodes in association with chronic granulomatous disease. Upper abdomen: Wall thickening in the nondistended stomach. Colonic dilatation. Splenic granulomata. Bones/joints: Dextroscoliosis and degenerative change. Soft tissues: Left mastectomy. Surgical clips in the left axilla. CT/CT chest w con* [id number] IMPRESSION: 1. COPD, interstitial prominence, and mild dependent airspace disease. 2. 5 mm right middle lobe granuloma, in association with chronic granulomatous disease. 3. Additional findings as described above. Radiation Dose CTDIVOL = (mGy): DLP = 400.55 (mGy-cm)
[2019-11-10] MEDS: iohexol 300 mg/mL 100 mL Btl IV (09:50)
--- NOTE | 2019-11-10 09:54 | PC.NURSE ---
pt back from CT scan by stretcher with tech
--- NOTE | 2019-11-10 10:03 | ECG_ITS ---
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 Measurements Intervals [place] Rate: 64 P: 63 CT: 177 QRS: 51 QRSD: 94 T: 26 QT: 411 QTc: 427 Interpretive Statements SINUS RHYTHM NONSPECIFIC T-WAVE ABNORMALITY INTERPRETATION BASED ON A DEFAULT AGE OF 40 YEARS Compared to ECG 11/10/2019 08:03:08 Atrial abnormality no longer present Possible ischemia no longer present T-wave abnormality still present Electronically Signed On 11-10-2019 22:50:18 CDT by Paty Espinosa M.D. [id number]
[2019-11-10 10:47] LABS: Troponin 5 2HR 7.43 ng/L (0-10); Troponin 5 2HR Delta 1.43 ABS# (0-10)
[2019-11-10 11:00] VITALS: BP 134/70; PULSE 65; RESP 11; O2SAT 99
[2019-11-10 11:39] VITALS: BP 134/70; PULSE 71; RESP 21; O2SAT 98
--- NOTE | 2019-11-12 15:41 | DCPLANNER ---
manager outreach had message to schedule an outpatient stress test for patient. manager outreach faxed order to centralized scheduling, will call for appointment information.
--- NOTE | 2019-11-14 14:46 | DCPLANNER ---
Patient had a stress test scheduled for 11.14.19, patient did attend the appointment.
== END 2019-11-10 11:40 | disposition home or self-care (01) ==
PROVIDERS: Nurse Practitioner Family; Emergency Provider Family Medicine; PCP Nurse Practitioner Family
DX: R07.1 Chest pain on breathing (principal); I20.0 Unstable angina; Z79.82 Long term (current) use of aspirin; I10 Essential (primary) hypertension
CPT/HCPCS: 12345; 71045; 71260; 76705; 80053; 81001; 81003; 83690; 83880; 84484; 85025; 93005; 99283; 99284; Q9967

== ENCOUNTER 2019-11-14 10:20 | Outpatient (CLI) | payer MEDICARE, OTHER, SELFPAY ==
[2019-11-14 10:59] VITALS: BMI 24.0
--- NOTE | 2019-11-14 11:37 | ECG_ITS ---
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 Interpretive Statements NAME OF STUDY: LEXISCAN SESTAMIBI STRESS TEST INDICATION: Chest Pain LEXISCAN STRESS TEST ORDERING PHYSICIAN: Jose M CLINICAL INFORMATION: Chest pain INTERPRETATION: 1. The patient was brought to the laboratory where Lexiscan was infused over 20 seconds. The resting blood pressure was 152/82. Maximum blood pressure was 152/82. The resting heart rate was 61 beats per minute. The maximum heart rate is 102 beats per minute. 2. The baseline electrocardiogram reveals sinus bradycardia with nonspecific ST-T wave changes and left ventricular hypertrophy by voltage 3. With Lexiscan infusion, there were no ST segment changes to suggest ischemia. 4. The patient experienced no symptoms or arrhythmias during the examination. CONCLUSION: 1. Unremarkable Lexiscan infusion. 2. Nuclear imaging to follow. Electronically Signed On 11-14-2019 19:12:18 CDT by Prem Patel M.D. [id number]
--- NOTE | 2019-11-14 11:37 | NMCV_ITS ---
NM ravi perf SPECT r/s* [id number] Chantal Richardson Age: 74 Gender: F : 1945 Exam Date: 11/14/2019 11:42 Ordering Phys: Chetan Salguero DO Technologist: MG Marshall Exam Location: [facility] Indications: Chest pain STRESS TEST [facility] IMAGE PROTOCOL Rest/Stress 1 Lexiscan Day Radiopharmaceutical Dose (mCi) Administration Site Administered by Rest: Tc-99m 10.4 IV MG Hester Sestamibi Stress:Tc-99m 32.3 IV MG Marshall Sestamichester Rest: 14-Nov-2019 60 Discovery 630 Stress: 14-Nov-2019 45 Discovery 630 0.4mg Lexiscan. Images obtained in supine and prone position. SPECT RESULTS Technical Quality: Excellent Raw Data Analysis: Normal Image Corrections: No attenuation or motion correction applied Summed Stress Score: 0 Summed Rest Score: 3 Summed Difference Score: 0 PERFUSION FINDINGS Patchy areas of slightly decreased tracer uptake in the inferior wall region, with no significant reversibility. FUNCTIONAL RESULTS (calculated via Gated SPECT) Stress Image LV EF (%): 63 Stress EDV (mL):65 TID: 1.24 Stress ESV (mL):24 FUNCTIONAL FINDINGS: Segmental wall motion analysis revealing no gross wall motion normalities. IMPRESSIONS 1. Myocardial perfusion imaging revealing patchy areas of persistent decreased tracer uptake in the inferior wall regions, most likely represent attenuation artifacts. 2. Normal LV ejection fraction of 63%. 3. LV wall motion analysis revealing no gross wall motion normalities. 4. Normal LV volume. 5. Elevated transient ischemic dilatation ratio, may suggest endocardial ischemia. However the positive predictive value this finding is limited. Clinical correlation is recommended. Possibly no significant coronary ischemia, based on the above findings Dr Rani Mosley MD FACC (Electronically Signed) Final Date: 14 November 2019 14:26 S
[2019-11-14] MEDS: regadenoson 0.4 Mg/5 ml Syringe IVP (12:23)
[2019-11-14 12:55] VITALS: BP 136/87; PULSE 87
== END 2019-11-14 10:21 | disposition home or self-care (01) ==
PROVIDERS: PCP Nurse Practitioner Family; Visit Provider Family Medicine
DX: R07.9 Chest pain, unspecified (principal)
CPT/HCPCS: 78452; 93017; A9500; J2785

== ENCOUNTER 2019-11-28 10:29 | Outpatient (CLI) | payer MEDICARE, OTHER, SELFPAY ==
--- NOTE | 2019-11-28 11:00 | USCV_ITS ---
Chantal Richardson Age: 74 Gender: F : 1945 Exam Date: 11/28/2019 10:47 Ordering Phys: Minda Rodriguez BODY TECHNICIAN/PAINTER BODY TECHNICIAN/PAINTER Technologist: Stella Lambert Exam Location: [facility] Indication: CHEST PAIN BP: 145 / 77 HR: 65 Rhythm: Sinus Technical Quality: Adequate MEASUREMENTS (Male / Female) Normal Values 2D ECHO LV Diastolic Diameter PLAX 3.5 cm 4.2 - 5.9 / 3.9 - 5.3 cm LV Systolic Diameter PLAX 2.3 cm LV Chamber Size 3.5 cm IVS Diastolic Thickness 0.9 cm 0.6 - 1.0 / 0.6 - 0.9 cm IVS Systolic Thickness 1.3 cm LVPW Diastolic Thickness 1.9 cm 0.6 - 1.0 / 0.6 - 0.9 cm LVPW Systolic Thickness 1.9 cm RV Chamber Size 3.1 cm LVOT Diameter 2.0 cm LV Ejection Fraction 2D Teich 65.3 % LV Ejection Fraction MOD 2C 62.0 % LV Ejection Fraction 2C AL 61.4 % LA Diameter 3.3 cm LA Width 3.5 cm LA Height 4.1 cm RA Width 3.6 cm RA Height 3.4 cm Aorta at Sinotubular Diameter 2.5 cm M-MODE LV Diastolic Diameter MM 5.5 cm 4.2 - 5.9 / 3.9 - 5.3 cm LV Systolic Diameter MM 3.6 cm LV Ejection Fraction MM Teich 63.8 % IVS Diastolic Thickness MM 0.5 cm 0.6 - 1.0 / 0.6 - 0.9 cm IVS Systolic Thickness MM 1.2 cm LVPW Diastolic Thickness MM 1.2 cm 0.6 - 1.0 / 0.6 - 0.9 cm LVPW Systolic Thickness MM 1.7 cm Aortic Annulus Diameter 2.6 cm LA Ao Ratio MM 1.3 MV E Point Septal Separation 0.8 cm DOPPLER AV Peak Velocity 157.0 cm/s LVOT Peak Velocity 115.0 cm/s AV Area Cont Eq vti 2.5 cm squared AV Area Cont Eq pk 2.3 cm squared MV Area PHT 3.7 cm squared Mitral E to A Ratio 0.9 MV E' Velocity 11.0 cm/s Mitral E to MV E' Ratio 8.1 Mitral E to LV E' Lateral Ratio 7.7 Mitral E to LV E' Septal Ratio 8.6 TR Peak Velocity 279.0 cm/s TR Peak Gradient 31.0 mmHg TV Peak E Velocity 63.0 cm/s Right Atrial Pressure 3.0 mmHg Pulmonary Artery Systolic Pressu 34.1 mmHg PV Peak Velocity 68.0 cm/s RV Acceleration Time 0.1 s RV Ejection Time 0.3 s RV AcT/ET 0.4 FINDINGS Left Ventricle Normal left ventricular size and systolic function, EF 66 %. No regional wall motion abnormalities. Right Ventricle The right ventricle is normal in size and function. Right Atrium The right atrium is normal in size. Left Atrium The left atrium is normal in size. Mitral Valve Thickened mitral valve. Mild mitral annular calcification. Aortic Valve Thickened aortic valve. Tricuspid Valve Trace tricuspid valve regurgitation. Pulmonic Valve No pulmonary valve stenosis. Pericardium Normal pericardium without effusion. Aorta Normal ascending aorta dimension. CONCLUSIONS Normal left ventricular size and systolic function, EF 66 %. No regional wall motion abnormalities. Thickened aortic and mitral valves. Mild mitral annular calcification. Trace tricuspid valve regurgitation. Estimated pulmonary artery peak systolic pressure 34 mmHg There is no pericardial effusion. There are no intracardiac masses. No previous study is available for comparison. Dr Rani Mosley MD FAC (Electronically Signed) Final Date: 28 November 2019 17:41 S
== END 2019-11-28 10:30 | disposition home or self-care (01) ==
LOC: US 10:29
PROVIDERS: PCP Nurse Practitioner Family; Visit Provider Nurse Practitioner Family
DX: R07.9 Chest pain, unspecified (principal); I08.3 Combined rheumatic disorders of mitral, aortic and tricuspid valves
CPT/HCPCS: 93306

== ENCOUNTER → 2020-01-02 10:12 | Outpatient (BNVA) | payer MEDICARE, OTHER, SELFPAY | PROVIDERS: PCP Nurse Practitioner Family; Visit Provider Nurse Practitioner Family | DX: I10 Essential (primary) hypertension (principal); E55.9 Vitamin D deficiency, unspecified; E03.9 Hypothyroidism, unspecified | CPT/HCPCS: 80053; 80061; 82306; 84443; 85025 ==

== ENCOUNTER → 2020-07-01 10:28 | Outpatient (BNVA) | payer MEDICARE, OTHER, SELFPAY | PROVIDERS: PCP Nurse Practitioner Family; Visit Provider Nurse Practitioner Family | DX: I10 Essential (primary) hypertension (principal); E55.9 Vitamin D deficiency, unspecified; R06.02 Shortness of breath; R79.89 Other specified abnormal findings of blood chemistry; E03.9 Hypothyroidism, unspecified; Z68.23 Body mass index [BMI] 23.0-23.9, adult | CPT/HCPCS: 80053; 80061; 82306; 84443; 85025 ==

== ENCOUNTER → 2021-01-01 13:22 | Outpatient (BNVA) | payer MEDICARE, OTHER, SELFPAY | PROVIDERS: PCP Nurse Practitioner Family; Visit Provider Nurse Practitioner Family | DX: I10 Essential (primary) hypertension (principal); E55.9 Vitamin D deficiency, unspecified; E03.9 Hypothyroidism, unspecified; E78.5 Hyperlipidemia, unspecified; R79.89 Other specified abnormal findings of blood chemistry | CPT/HCPCS: 80053; 80061; 82306; 84443; 85025 ==

== ENCOUNTER → 2021-07-06 09:57 | Outpatient (BNVA) | payer MEDICARE, OTHER, SELFPAY | PROVIDERS: PCP Nurse Practitioner Family; Visit Provider Nurse Practitioner Family | DX: I10 Essential (primary) hypertension (principal); E03.9 Hypothyroidism, unspecified; E55.9 Vitamin D deficiency, unspecified; E78.5 Hyperlipidemia, unspecified; Z78.0 Asymptomatic menopausal state; Z85.3 Personal history of malignant neoplasm of breast; Z00.00 Encounter for general adult medical examination without abnormal findings | CPT/HCPCS: 80053; 80061; 82306; 84443; 85025 ==

== ENCOUNTER → 2021-12-29 12:14 | Outpatient (BNVA) | payer MEDICARE, OTHER, SELFPAY | PROVIDERS: PCP Nurse Practitioner Family; Visit Provider Nurse Practitioner Family | DX: Z90.12 Acquired absence of left breast and nipple (principal); Z85.3 Personal history of malignant neoplasm of breast; I10 Essential (primary) hypertension; E55.9 Vitamin D deficiency, unspecified; Z12.11 Encounter for screening for malignant neoplasm of colon; E78.5 Hyperlipidemia, unspecified; E03.9 Hypothyroidism, unspecified | CPT/HCPCS: 80053; 80061; 82306; 84443; 85025 ==

== ENCOUNTER 2022-01-06 09:51 | Outpatient (CLI) | payer MEDICARE, OTHER, SELFPAY ==
--- NOTE | 2022-01-06 10:02 | MM_ITS ---
WS: [id number] DIAGNOSTIC RIGHT DIGITAL TOMOSYNTHESIS MAMMOGRAPHY WITH CAD. HISTORY: Z85.3 - Personal history of malignant neoplasm of breast COMPARISON: 02/01/2019 and 01/19/2018 Technique: CC, MLO and ML views. Breast composition: There are scattered areas of fibroglandular density. RIGHT breast arterial calci fication. Fibroglandular pattern is stable. No distortion. No suspicious calcifications. MM/[place] [id number] IMPRESSION: BI-RADS: 2-Benign FOLLOW UP: 1 Year Follow-up
== END 2022-01-06 09:52 | disposition home or self-care (01) ==
LOC: RAD 09:54
PROVIDERS: PCP Nurse Practitioner Family; Visit Provider Nurse Practitioner Family
DX: Z85.3 Personal history of malignant neoplasm of breast (principal); Z90.12 Acquired absence of left breast and nipple
CPT/HCPCS: 77061

== ENCOUNTER → 2022-06-02 14:39 | Outpatient (BNVA) | payer MEDICARE, OTHER, SELFPAY | PROVIDERS: PCP Nurse Practitioner Family; Visit Provider Nurse Practitioner Family | DX: M25.562 Pain in left knee (principal) | CPT/HCPCS: 73562 ==

== ENCOUNTER → 2022-06-24 10:27 | Outpatient (BNVA) | payer MEDICARE, OTHER, SELFPAY | PROVIDERS: PCP Nurse Practitioner Family; Visit Provider Nurse Practitioner Family | DX: E78.5 Hyperlipidemia, unspecified (principal); E55.9 Vitamin D deficiency, unspecified; I10 Essential (primary) hypertension; Z12.11 Encounter for screening for malignant neoplasm of colon; M25.562 Pain in left knee; E03.9 Hypothyroidism, unspecified | CPT/HCPCS: 80053; 80061; 82306; 82607; 84443; 85025 ==

== ENCOUNTER → 2022-12-28 11:20 | Outpatient (BNVA) | payer MEDICARE, OTHER, SELFPAY | PROVIDERS: PCP Nurse Practitioner Family; Visit Provider Nurse Practitioner Family | DX: I10 Essential (primary) hypertension (principal); E55.9 Vitamin D deficiency, unspecified | CPT/HCPCS: 80053; 80061; 82306; 84443; 85025 ==

== ENCOUNTER → 2023-01-06 08:24 | Outpatient (BNVA) | payer MEDICARE, OTHER, SELFPAY | PROVIDERS: PCP Nurse Practitioner Family; Visit Provider Nurse Practitioner Family | DX: R05.9 Cough, unspecified (principal); J32.9 Chronic sinusitis, unspecified; Z20.822 Contact with and (suspected) exposure to COVID-19 | CPT/HCPCS: 87400; 87426 ==

== ENCOUNTER 2023-01-11 09:35 | Outpatient (CLI) | payer MEDICARE, OTHER, SELFPAY ==
--- NOTE | 2023-01-11 09:41 | MM_ITS ---
WS: [id number] DIAGNOSTIC RIGHT DIGITAL TOMOSYNTHESIS MAMMOGRAPHY WITH CAD. HISTORY: ANNUAL - HX BR CA COMPARISON: 01/06/2022, 02/01/2019 Technique: CC, MLO and ML views. Breast composition: The breasts are heterogeneously dense, which may obscure small masses. No suspici ous masses or calcifications. Breast arterial calcifications. IMPRESSION: MM/[place] [id number] BI-RADS: 2-Benign FOLLOW UP: 1 Year Follow-up
== END 2023-01-11 09:36 | disposition home or self-care (01) ==
LOC: RAD 09:37
PROVIDERS: PCP Nurse Practitioner Family; Visit Provider Nurse Practitioner Family
DX: Z85.3 Personal history of malignant neoplasm of breast (principal)
CPT/HCPCS: 77061; G0279

== ENCOUNTER → 2023-06-29 08:50 | Outpatient (BNVA) | payer MEDICARE, OTHER, SELFPAY | PROVIDERS: PCP Nurse Practitioner Family; Visit Provider Nurse Practitioner Family | DX: E55.9 Vitamin D deficiency, unspecified (principal); E03.9 Hypothyroidism, unspecified; I10 Essential (primary) hypertension | CPT/HCPCS: 80053; 80061; 82306; 84443; 85025 ==

== ENCOUNTER 2023-12-28 06:00 | Outpatient (CLI) | payer MEDICARE, SELFPAY | END 2023-12-28 06:01 | disposition home or self-care (01) | LOC: RAD 12-29 06:21 | PROVIDERS: PCP Nurse Practitioner Family; Visit Provider Nurse Practitioner Family | DX: E55.9 Vitamin D deficiency, unspecified (principal); I10 Essential (primary) hypertension | CPT/HCPCS: 80053; 80061; 82306; 82607; 84443; 85025 ==

== ENCOUNTER 2024-01-17 10:26 | Outpatient (CLI) | payer MEDICARE, SELFPAY ==
--- NOTE | 2024-01-17 10:37 | MM_ITS ---
WS: [id number] RIGHT DIAGNOSTIC DIGITAL TOMOSYNTHESIS MAMMOGRAPHY WITH CAD. HISTORY: Z85.3 - Personal history of malignant neoplasm of breast COMPARISON: 01/11/2023, 01/06/2022, 02/01/2019 Technique: CC, MLO and ML views. Breast composition: There are scattered areas of fibroglandular density. Scattered asymmetries and calcifications are stable. No suspicious group of calcification. No mass. MM/MM diag RT tomosynthesis [id number] IMPRESSION: BI-RADS: 2 - Benign. FOLLOW UP: 1 Year Follow-up
== END 2024-01-17 10:27 | disposition home or self-care (01) ==
LOC: RAD 01-18 10:27
PROVIDERS: PCP Nurse Practitioner Family; Visit Provider Nurse Practitioner Family
DX: Z85.3 Personal history of malignant neoplasm of breast (principal); R92.323 Mammographic fibroglandular density, bilateral breasts; N64.89 Other specified disorders of breast; R92.1 Mammographic calcification found on diagnostic imaging of breast
CPT/HCPCS: 77061; G0279

== ENCOUNTER → 2024-07-03 10:23 | Outpatient (BNVA) | payer MEDICARE, OTHER, SELFPAY | PROVIDERS: PCP Nurse Practitioner Family; Visit Provider Nurse Practitioner Family | DX: E78.5 Hyperlipidemia, unspecified (principal); I10 Essential (primary) hypertension; E55.9 Vitamin D deficiency, unspecified | CPT/HCPCS: 80053; 80061; 82306; 82607; 84443; 85025 ==

== ENCOUNTER → 2025-01-04 10:10 | Outpatient (BNVA) | payer MEDICARE, OTHER, SELFPAY | PROVIDERS: PCP Nurse Practitioner Family; Visit Provider Nurse Practitioner Family | DX: I10 Essential (primary) hypertension (principal) | CPT/HCPCS: 80053; 80061; 82306; 84443; 85025 ==

== ENCOUNTER 2025-01-30 11:07 | Outpatient (CLI) | payer MEDICARE, OTHER, SELFPAY ==
--- NOTE | 2025-01-30 11:30 | MM_ITS ---
WS: [id number] RIGHT 3D TOMOSYNTHESIS DIGITAL MAMMOGRAPHY WITH CAD CLINICAL INFORMATION: Z85.3 - Personal history of malignant neoplasm of breast HISTORY: LEFT mastectomy COMPARISON: 2023 TECHNIQUE: 3 views of the right breast were obtained. FINDINGS: The right breast is composed of heterogeneous fibroglandular density tissue, which can limit the detection of small underlying mass lesions. Vascular calcifications RIGHT breast. No suspicious focal mass, asymmetry, calcifications, or architectural distortion. No evidence of malignancy. MM/MM diag RT tomosynthesis [id number] IMPRESSION: DENSITY: The breasts are heterogeneously dense, which may obscure small masses. BI-RADS: 2 - Benign FOLLOW UP: 1 Year Follow-up Recommend return to annual diagnostic mammography.
== END 2025-01-30 11:08 | disposition home or self-care (01) ==
PROVIDERS: PCP Nurse Practitioner Family; Visit Provider Nurse Practitioner Family
DX: Z85.3 Personal history of malignant neoplasm of breast (principal); R92.321 Mammographic fibroglandular density, right breast; R92.331 Mammographic heterogeneous density, right breast; R92.1 Mammographic calcification found on diagnostic imaging of breast
CPT/HCPCS: 77061; G0279

== ENCOUNTER 2025-02-28 15:48 | Emergency (ER) | payer MEDICARE, OTHER, SELFPAY ==
[2025-02-28 15:58] VITALS: BP 170/72; PULSE 74; RESP 17; TEMP 36.7; O2SAT 96; BMI 22.6
[2025-02-28 16:41] LABS: Hematocrit 37.5 % (36-47); Hemoglobin 12.70 g/dL (11.27-16.99); Mean Corpuscular HGB Conc 33.9 g/dL (30-55); Mean Corpuscular Hemoglobin 29.7 pg (27-33); Mean Corpuscular Volume 87.8 fl (85-98); Nucleated Red Blood Cells % 0 %; Platelet Count 362 10^3/cmm (157-399); Red Blood Count 4.27 10^6/uL (3.85-5.65); White Blood Count 6.69 10^3/uL (3.29-11.43)
[2025-02-28 17:04] LABS: Alanine Aminotransferase 28 U/L (0-33); Albumin Level 4.6 g/dL (3.5-5.2); Alkaline Phosphatase 62 U/L (35-105); Anion Gap 17.5 (5-19); Aspartate Amino Transferase 37 U/L (0-32); Blood Urea Nitrogen 15 mg/dL (8-23); Calcium 9.5 mg/dL (8.5-10.5); Carbon Dioxide 27 mmol/L (22-29); Chloride 94 mmol/L (98-107); Creatinine Clr Calc Pharmacy 44.6798; Globulin 2.8 g/dL (1.3-4.6); Glucose 112 mg/dL (65-115); Osmolality Calculated 282 mOsm/kg (285-295); Potassium 3.5 mmol/L (3.5-5.1); Sodium 135 mmol/L (136-145); Total Protein 7.4 g/dL (6.6-8.7)
[2025-02-28 17:05] LABS: INR 0.89 (0.8-1.2); Partial Thromboplastin Time 25.1 SECONDS (23.9-36.7); Prothrombin Time 12.70 SECONDS (12.1-14.9)
--- NOTE | 2025-02-28 17:35 | ED_ITS ---
HPI - GI Bleed 2 General: Chief complaint: GI Bleed Stated complaint: bright red blood in stool Time Seen by Provider: 02/28/25 17:34 History of Present Illness: 79-year-old female with a history of hyp ertension and hyperlipidemia who presents to the emergency room with difficulty with bowel movements/constipation. She had some rectal bleeding as well. Says she has been taking laxatives with no relief. No pain. No nausea or vomiting. No distention. No fevers. No dysuria. Related Data Previous Rx's ?Medication ?Instructions ?Recorded bra #4 ea 04/02/22 left sided breast prosthesis #1 ea 04/02/22 amlodipine 10 mg tablet See Rx Instructions .Route 0 01/04/25 .COMPLEX #90 tabs hydrochlorothiazide 25 mg tablet See Rx Instructions . Route 01/04/25 .COMPLEX #90 tabs levothyroxine 50 mcg tablet See Rx Instructions .Route 01/04/25 .COMPLEX #90 tabs metoprolol succinate 25 mg See Rx Instructions .Route 01/04/25 tablet,extended release 24 hr .COMPLEX #45 tabs ergocalciferol (vitamin D2) 1,250 See Rx Instructions .Route 02/19/25 mcg (50,000 unit) capsule .COMPLEX #3 caps glycerin (adult) 1 supp [place] DAILY PRN constipa tion 02/28/25 #12 ea polyethylene glycol 3350 17 17 g PO DAILY #510 grams 1 04/30/24 gram/dose oral powder (Miralax) Allergies Allergy/AdvReac Type Severity Reaction Status Date / Time Penicillins Allergy ALGY-Rash Verified 01/04/25 08:31 Review of Systems 2 Narrative: Constitutional symptoms: Negative except as documented in HPI. Skin symptoms: Negative except as documented in HPI. Eye symptoms: Negative except as documented in HPI. ENMT symptoms: Negative except as documented in HPI. Respiratory symptoms: Negative except as documented in HPI. Cardiovascular symptoms: Negative except as documented in HPI. Gastrointestinal symptoms: Negative except as documented in HPI. Genitourinary symptoms: Negative except as documented in HPI. Musculoskeletal symptoms: Negative except as documented in HPI. Neurologic symptoms: Negative except as documented in HPI. Psychiatric symptoms: Negative except as documented in HPI. Endocrine symptoms: Negative except as documented in HPI. PFSH ED 2 PFSH: Medical History (Updated 02/28/25 @ 19:57 by Christine Croft MD) Hyperlipidemia HX: breast cancer Hypertension Vitamin D deficiency Hypothyroid HTN (hypertension) Surgical History Hx of colonoscopy (~2004) Hx of total mastectomy of left breast (~1995) Family History Family/Other Cancer Breast Hypertension CAD (coronary artery disease), Onset Age: 58 brother - living Other Heart disease Social History Smoking and tobacco/nicotine status: never used tobacco/nicotine Second hand smoke exposure: No Alcohol intake: never Substance/Drug Use: never Caregiver/support person: Yes Lives independently: Yes Household members: none Housing: House Marital status: / Current occupational status: retired Current gender identity: Female Special trang needs: No Physical Exam 2 Narrative: EXAM NARRATIVE: General: Alert, no acute distress. Skin: Warm, dry. Head: Normocephalic, atraumatic. Neck: Supple, trachea midline. Eye: Extraocular movements are intact. Ears, nose, mouth and throat: mucosa moist. Cardiovascular: Regular, Normal peripheral perfusion. Respiratory: Lungs are clear to auscultation, respirations are non-labored, breath sounds are equal, Symmetrical chest wall expansion. Gastrointestinal: Soft, Nontender, Non distended Musculoskeletal: Normal ROM, no deformity. Neurological: Alert and oriented, No focal neurological deficit observed. Psychiatric: Cooperative, appropriate mood & affect. Course 2 Vital Signs: Vital signs: Vital Signs Temperature 98.1 F 02/28/25 15:58 Pulse Rate 74 02/28/25 15:58 Respiratory Rate 17 02/28/25 15:58 Blood Pressure 170/72 02/28/25 15:58 Pulse Oximetry 96 02/28/25 15:58 Oxygen Delivery Me thod Room Air 02/28/25 15:58 MDM - GI Bleed Medical Decision Making Medical decision making: Patient's reason for coming to the emergency room: Constipation and rectal bleeding. Social determinants patient is retired, elderly and lives alone. She is quite healthy I reviewed the patient's medical record. 79-year-old female with a history of hypothyroidism, hypertension and hyperlipidemia I reviewed the patient's current home meds She takes metoprolol and levothyroxine at home. Differential diagnosis including but not limited to and based on the above HPI, review of systems and physical exam: - patient with complaint of constipation: Small bowel obstruction. Gastroparesis. Constipation. Also evaluation for urinary retention, liver disease, renal failure. Orders placed to evaluate differential diagnosis based on the above differential, HPI and physical exam Lab Review: Laboratory results were reviewed and interpreted by myself the emergency room physician. No leukocytosis. No anemia. No renal failure. CT of the abdomen pelvis: Some edema at the anorectal junction likely due to her constipation. Changes of stercoral colitis. No obstruction. This was reviewed and interpreted by myself the emergency room physician. I also reviewed the radiology report. Assessment of risk: Level of risk: Moderate risk patient. Primarily just because of age. She has a few comorbidities. Hospitalization considerations: No consideration of admission today. Reexamination: Patient remained stable. No increased work of breathing. No altered mental status. No focal motor deficits. Assessment and plan: Constipation Rectal bleeding ?GoLytely for home. - Discharged home - Discussed plan with patient. Answered any questions. - Evaluation and treatment of this problem were appropriate in the emergency setting. Lab Data 02/28/25 16:34 02/28/25 16:34 Radiology Impressions Abdomen/Pelvis CT 02/28/25 17:40 IMPRESSION: Findings of thickening of the anorectal junction with surrounding edema may be related to constipation and changes of stercoral colitis no obstruction. Normal appendix Hypodensity in the right lower renal pole compatible with renal cyst COMMENTS: Consistent with the [employer]'s Incidental Findings Committee white paper (J Am Dragan Radiol 2018): Any incidental renal lesion less than 1 cm or classified as too small to characterize, or any incidental cystic renal lesion characterized as simple-appearing, is likely benign. No follow-up imaging is recommended for these lesions per consensus recommendations based on imaging criteria. Laboratory Results WBC 6.69 10^3/uL (3.29-11.43) 02/28/25 16:34 RBC 4.27 10^6/uL (3.85-5.65) 02/28/25 16:34 Hgb 12.70 g/dL (11.27-16.99) 02/28/25 16:34 Hct 37.5 % (36-47) 02/28/25 16:34 MCV 87.8 fl (85-98) 02/28/25 16:34 MCH 29.7 pg (27-33) 02/28/25 16:34 MCHC 33.9 g/dL (30-55) 02/28/25 16:34 RDW 13.5 % (12.1-15.1) 02/28/25 16:34 Plt Count 362 10^3/cmm (157-399) 02/28/25 16:34 MPV 9.1 fL (7.4-10.4) 02/28/25 16:34 Neut % (Auto) 55.7 % 02/28/25 16:34 Lymph % (Auto) 33.9 % 02/28/25 16:34 [place] % (Auto) 9.4 % 02/28/25 16:34 Eos % (Auto) 0.0 % 02/28/25 16:34 Baso % (Auto) 0.7 % 02/28/25 16:34 Neut # (Auto) 3.72 10^3/uL (1.8-7.7) 02/28/25 16:34 Lymph # (Auto) 2.3 10^3/uL (0.8-4.8) 02/28/25 16:34 [place] # (Auto) 0.6 10^3/uL (0.2-0.9) 02/28/25 16:34 Eos # (Auto) 0.0 10^3/uL (0.0-0.8) 02/28/25 16:34 Baso # (Auto) 0.1 10^3/uL (0.0-0.1) 02/28/25 16:34 Nucleated RBC % (auto) 0 % 02/28/25 16:34 Nucleated RBCs # 0.0 /100WBC 02/28/25 16:34 PT 12.70 SECONDS (12.1-14.9) 02/28/25 16:34 INR 0.89 (0.8-1.2) 02/28/25 16:34 APTT 25.1 SECONDS (23.9-36.7) 02/28/25 16:34 Sodium 135 mmol/L (136-145) L 02/28/25 16:34 Potassium 3.5 mmol/L (3.5-5.1) 02/28/25 16:34 Chloride 94 mmol/L (98-107) L 02/28/25 16:34 Carbon Dioxide 27 mmol/L (22-29) 02/28/25 16:34 Anion Gap 17.5 (5-19) 02/28/25 16:34 BUN 15 mg/dL (8-23) 02/28/25 16:34 Creatinine 0.9 mg/dL (0.5-0.9) 02/28/25 16:34 GFR Calculation Not Reportable 02/28/25 16:34 Glucose 112 mg/dL (65-115) 02/28/25 16:34 Calculated Osmolality 282 mOsm/kg (285-295) L 02/28/25 16:34 Calcium 9.5 mg/dL (8.5-10.5) 02/28/25 16:34 Total Bilirubin 0.7 mg/dL (0.15-1.2) 02/28/25 16:34 AST 37 U/L (0-32) H 02/28/25 16:34 ALT 28 U/L (0-33) 02/28/25 16:34 Alkaline Phosphatase 62 U/L (35-105) 02/28/25 16:34 Total Protein 7.4 g/dL (6.6-8.7) 02/28/25 16:34 Albumin 4.6 g/dL (3.5-5.2) 02/28/25 16:34 Globulin 2.8 g/dL (1.3-4.6) 02/28/25 16:34 All radiology interpretation(s) finalized by discharge Discharge Plan Discharge Patient Disposition: Home Clinical Impression: Constipation, Dehydration Condition: Stable Prescriptions: New glycerin (adult) Suppository 1 supp [place] DAILY PRN (Reason: constipation) Qty: 12 0RF polyethylene glycol 3350 [Miralax] 17 gram/dose powder 17 g PO DAILY Qty: 510 0RF Rx Instructions: Take 1-2 scoops daily for the next 3 months to keep stools soft No Action metoprolol succinate 25 mg tablet extended release 24 hr See Rx Instructions .ROUTE .COMPLEX Qty: 45 3RF Dose Instruction: TAKE 1/2 TABLET BY MOUTH DAILY Rx Instructions: TAKE 1/2 TABLET BY MOUTH DAILY levothyroxine 50 mcg tablet See Rx Instructions .ROUTE .COMPLEX Qty: 90 3RF Dose Instruction: TAKE ONE TABLET BY MOUTH EVERY DAY Rx Instructions: TAKE ONE TABLET BY MOUTH EVERY DAY hydrochlorothiazide 25 mg tablet See Rx Instructions .ROUTE .COMPLEX Qty: 90 3RF Dose Instruction: TAKE ONE TABLET BY MOUTH EVERY DAY Rx Instructions: TAKE ONE TABLET BY MOUTH EVERY DAY amlodipine 10 mg tablet See Rx Instructions .ROUTE .COMPLEX Qty: 90 3RF Dose Instruction: TAKE ONE TABLET BY MOUTH EVERY DAY Rx Instructions: TAKE ONE TABLET BY MOUTH EVERY DAY (DME) left sided breast prosthesis See Rx Instructions .Route .MEDSUPPLY Qty: 1 0RF Rx Instructions: As directed (DME) bra See Rx Instructions .Route .MEDSUPPLY Qty: 4 0RF Rx Instructions: As directed ergocalciferol (vitamin D2) 1,250 mcg (50,000 unit) capsule See Rx Instructions .ROUTE .COMPLEX Qty: 3 0RF Dose Instruction: TAKE ONE CAPSULE BY MOUTH ONCE monthly; take ON THE 12th of THE MONTH Rx Instructions: TAKE ONE CAPSULE BY MOUTH ONCE monthly; take ON THE 12th of THE MONTH Discharge Orders: Discharge ED (Routine); Ordered 02/28/25 Ordered By: Christine Croft Referrals: Minda Rodriguez FNP [Primary Care Provider, Family Practice] Discharge Diet: Usual diet Discharge Activity: Increase activity as tolerated Patient Instructions: Constipation (ED), Opioid Safety, Pain Management, Patient Portal & Maggie Instructions Activity Restrictions/Additional Instructions: Take 1 to 2 cups of GoLytely every 3-4 hours while awake until your stools are clear. Continue to take MiraLAX for the next 2 to 3 months to keep her stools soft. Thank you for choosing [facility] for your healthcare needs today. You have been screened and evaluated and felt safe for discharge. Health conditions do change or evolve sometimes and as such it is important that you follow up with your Primary Doctor to be re checked, 3-5 days is a general good time frame for follow up. You are always welcome to return to the ED for re assessment if your symptoms are worsening or you have new concerns Print Language: Armenian Coding Level of Care Code ED Electric Cutter Operator for Ольга Mason
--- NOTE | 2025-02-28 17:40 | CTR_ITS ---
PROCEDURE INFORMATION: Exam: CT Abdomen And Pelvis With Contrast Exam date and time: 02/28/2025 7:11 PM Age: 79 years old Clinical indication: Abdominal pain; PT states on Tuesday, she started to be constipated. PT state she finally went to the bathroom on Tuesday with the help of laxitives. PT states it was a small amount. PT states Tuesday morning she also went but has not since. TECHNIQUE: Imaging protocol: Computed tomography of the abdomen and pelvis with contrast. Radiation optimization: All CT scans at this facility use at least one of these dose optimization techniques: automated exposure control; mA and/or kV adjustment per patient size (includes targeted exams where dose is matched to clinical indication); or iterative reconstruction. Contrast material: [id number]; Contrast volume: 100 ml; Contrast route: INTRAVENOUS (IV); COMPARISON: abdomen limited [id number] 11/10/2019 8:27 AM RADIATION DOSE METRICS: Total DLP (mGy-cm): 372.23 FINDINGS: Lungs: Linear parenchymal density is present in both lung bases may represent postinflammatory scarring or atelectasi adhesive atelectasis Pleural spaces: There are no significant pleural effusions Heart: Coronary artery and mitral annular calcifications present. Diaphragm: There is a small hiatus hernia demonstrated. Liver: Unremarkable. No mass. Gallbladder and biliary ducts: Unremarkable. No calcified stones. No ductal dilation. Pancreas: Unremarkable. No ductal dilation. Spleen: Calcified granuloma present in the spleen. Adrenal glands: Normal. No mass. Kidneys and ureters: There are findings of 2 cm hypodensity in the lower pole right kidney compatible with cyst Stomach and bowel: Bowel demonstrates no obstruction or severe constipation. There is thickening of the anorectal junction as demonstrated on image 60 series 4 without significant stenosis . Considering the patient's history of constipation, findings could be related to stercoral colitis. Appendix: The appendix was visualized appears normal Intraperitoneal space: There is no intra abdominopelvic free air or free fluid present. 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 Lymph nodes: Unremarkable. No enlarged lymph nodes. Urinary bladder: Urinary bladder is distended without nodularity. Reproductive: There is calcification in the uterine myometrium could be dystrophic calcifications or related to generate calcified small fibroids that have undergone atrophy. Bones/joints: Unremarkable. No acute fracture. Soft tissues: Unremarkable. CT/CT abdomen pelvis w con* [id number] IMPRESSION: Findings of thickening of the anorectal junction with surrounding edema may be related to constipation and changes of stercoral colitis no obstruction. Normal appendix Hypodensity in the right lower renal pole compatible with renal cyst COMMENTS: Consistent with the [employer]'s Incidental Findings Committee white paper (J Am Dragan Radiol 2018): Any incidental renal lesion less than 1 cm or classified as too small to characterize, or any incidental cystic renal lesion characterized as simple-appearing, is likely benign. No follow-up imaging is recommended for these lesions per consensus recommendations based on imaging criteria.
[2025-02-28] MEDS: iohexol 350 mg/mL 500 mL Btl (per mL) IV (19:12)
== END 2025-02-28 20:51 | disposition home or self-care (01) ==
PROVIDERS: Emergency Provider Emergency Medicine; PCP Nurse Practitioner Family
DX: K59.00 Constipation, unspecified (principal); E86.0 Dehydration; E78.5 Hyperlipidemia, unspecified; I10 Essential (primary) hypertension; Z85.3 Personal history of malignant neoplasm of breast
CPT/HCPCS: 36415; 74177; 80053; 85025; 85610; 85730; 99285; J9999